=== PATIENT | female | born 1990 | race Two or more races ===

== ENCOUNTER 2016-05-09 16:37 | Emergency (ER) | payer OTHER ==
[~2016-05-09] VITALS: Wt 60.0 kg
[~2016-05-09 16:37] MED LIST: DICY10CA60 PO; IBUP-1542 PO; IBUP800T25 PO; ONDA4TAB35 PO
[2016-05-09 18:12] LABS: URINE BLOOD (Dip) POC Negative (NEGATIVE)
[2016-05-09 18:29] LABS: BASOPHILS % 0.2 % (0.0-2.0); EOSINOPHILS % 0.4 % (0.0-7.0); HEMATOCRIT 43.8 % (37.0-47.0); HEMOGLOBIN 14.4 g/dl (12.0-16.0); LYMPHOCYTES # 2.8 10^3/ul (0.8-2.9); LYMPHOCYTES % 33.7 % (15.0-51.0); MEAN CORPUSCULAR HEMOGLOBIN 28.7 pg (29.0-33.0); MEAN CORPUSCULAR HGB CONC 32.9 g/dl (32.0-37.0); MEAN PLATELET VOLUME 9.2 fl (7.4-10.4); MONOCYTE # 0.4 10^3/ul (0.3-0.9); NEUTROPHIL # 5.1 10^3/ul (1.6-7.5); NEUTROPHILS % 60.7 % (39.0-77.0); PLATELET COUNT 207 10^3/UL (140-440); RED BLOOD COUNT 5.04 10^6/ul (4.20-5.40); UNCORRECTED WBC 8.4 10^3/ul (4.8-10.8); WHITE BLOOD COUNT 8.4 10^3/ul (4.8-10.8)
[2016-05-09 18:33] LABS: POTASSIUM 3.8 mmol/L (3.5-5.1)
[2016-05-09 18:35] LABS: CREATININE 0.73 mg/dl (0.44-1.00)
[2016-05-09 18:45] LABS: CONDITION 1
--- NOTE | 2016-05-09 18:51 | RADRPT ---
PROCEDURE: US Pelvis. CLINICAL INDICATION: Pelvic pain and vaginal bleeding TECHNIQUE: Multiple sonographic images of the pelvis were obtained utilizing a transabdominal and endovaginal technique. The images were reviewed on a PACS workstation. COMPARISON: August 09, 2015 FINDINGS: The uterus is visualized and measures 6.5 x 3.0 x 3.9 cm. The endometrial echo complex measures 11 m m thickness. Small Nabothian cyst is seen in the cervix. No uterine masses are identified. The right ovary measures 2.7 x 2.2 x 2.1 cm . The left ovary measures 3.3 x 1.7 x 2.0 cm. 1.8 cm s imple cyst is identified on the right ovary. Multiple follicles are seen on the left ovary. The ov vitaliy demonstrate normal vascularity.. Trace free fluid is noted in the cul-de-sac. IMPRESSION: Small Nabothian cyst in the cervix. 1.8 cm simple cyst on the right ovary. This likely reflects a prominent follicle or physiologic cys t. Trace, nonspecific free fluid in the cul-de-sac. This could be physiologic. If further characterization of the organs of the pelvis is needed MRI should be considered. RPTAT: AA .Williams Wagner MD, Date Time Electronically viewed and signed by .Williams Wagner MD, MD on 05/09/2016 18:50 .P/
[2016-05-09] MEDS ORDERED: IBUP400T22 PO (19:28)
[2016-05-09 19:44] VITALS: BP 135/82; PULSE 77; RESP 18; TEMP 98.9
--- NOTE | 2016-05-09 19:50 | ERD ---
ER Documentation Chief Complaint Date/Time DATE: 05/09/16 TIME: 19:45 Chief Complaint NAUSEA VAGINAL BLEEDING FOR 2 WKS. NOT . NO DYSURIA HPI Patient is a 25-year-old female who presents to the ED with bilateral pelvic pain, vaginal bleeding. She states that she had her period on 04/25/16 and had 5 days of bleeding. She denies bleeding today. She states that she has had a history of ovarian cysts in the past and was on control however she stopped in January. She now complains of pelvic pain. She also complains of a green discharge from her rectum 2 weeks ago she denies anal sex. She denies sexual activity for the last 3 years. She denies abnormal vaginal discharge. She denies dysuria, urgency or frequency. She denies fever or chills. She denies constipation, last bowel movement was yesterday she ate. She is passing gas. Denies abdominal pain, nausea, vomiting or diarrhea. Denies headache or dizziness. Denies leg pain or swelling. Denies rectal pain.. She states that this happened 2 or 3 times. ROS All systems reviewed and are negative except as per history of present illness. Medications Home Meds Active Scripts Ibuprofen* (Motrin*) 400 Mg Tab, 400 MG PO Q6, #30 TAB Prov:RUSS VALVERDE PA-C 05/09/16 Ibuprofen* (Motrin*) 600 Mg Tab, 600 MG PO Q6H Y for PAIN AND OR ELEVATED TEMP, #30 TAB Prov:SARAH RACHEL PA-C 11/19/15 Ibuprofen* (Motrin*) 800 Mg Tab, 800 MG PO Q6H Y for PAIN, #30 TAB Prov:SHANTHI PÉREZ MD 08/09/15 Ondansetron Hcl* (Zofran* ODT) 4 mg -ODT Tab.disper, 4 MG PO Q4H Y for NAUSEA AND OR VOMITING, #30 TAB Prov:SHANTHI PÉREZ MD 08/09/15 Dicyclomine Hcl* (Bentyl*) 10 Mg Capsule, 10 MG PO TID Y for abdominal cramping , #30 CAP Prov:SHANTHI PÉREZ MD 08/09/15 Allergies Allergies: Coded Allergies: No Known Allergy (Unverified , 05/09/16) PMhx/Soc History of Surgery: No Anesthesia Reaction: No Hx Neurological Disorder: No Hx Respiratory Disorders: No Hx Cardiac Disorders: No Hx Psychiatric Problems: No Hx Miscellaneous Medical Probl: Yes (hemorhoids, recent colonoscopy) Hx Alcohol Use: No Hx Substance Use: No Hx Tobacco Use: No Smoking Status: Never smoker FmHx Family History: No coronary disease, No diabetes, No other Physical Exam Vitals Vital Signs Date Time Temp Pulse Resp B/P Pulse Ox O2 Delivery O2 Flow Rate FiO2 05/09/16 16:46 98.9 91 20 154/85 97 Physical Exam GENERAL: Well-developed, well-nourished female. Appears in no acute distress. LUNG: Clear to auscultation bilaterally. No rhonchi, wheezing, rales or coarse breath sounds. HEART: Regular rate and rhythm. No murmurs, rubs or gallops. ABDOMEN: No scars, ecchymosis or rashes noted. Soft, nontender, and nondistended. Positive bowel sounds in all four quadrants. No rebound tenderness , no guarding. (-) McBurneys point tenderness. No CVA tenderness. Tenderness in the bilateral pelvic area. No CVA tenderness BACK: No midline tenderness. EXAM: No PID, no adnexal tenderness no abnormal vaginal discharge. No pain with rectal exam. No surrounding erythema no drainage. No rectal pain. No blood. No discharge seen. Extremities: Equal pulses bilaterally. No peripheral clubbing, cyanosis or edema. No unilateral leg swelling. NEUROLOGIC: Alert and oriented. Moving all four extremities. 5/5 strength in all extremities. Normal speech. Steady gait. SKIN: Normal color. Warm and dry. No rashes or lesions. Capillary refill < 2 seconds Result Diagram: 05/09/16 18005/09/16 180 Results 24 hrs Laboratory Tests Test 05/09/16 18:05 05/09/16 18:14 Anion Gap 17 Basophils # 0.010^3/ul Basophils % 0.2% Blood Morphology Comment Blood Urea Nitrogen 10mg/dl Calcium Level 10.0mg/dl Carbon Dioxide Level 31mmol/L Chloride Level 100mmol/L Creatinine 0.73mg/dl Eosinophils # 0.010^3/ul Eosinophils % 0.4% Glucose Level 86mg/dl Hematocrit 43.8% Hemoglobin 14.4g/dl Lymphocytes # 2.810^3/ul Lymphocytes % 33.7% Mean Corpuscular Hemoglobin 28.7pg Mean Corpuscular Hemoglobin Concent 32.9g/dl Mean Corpuscular Volume 87.0fl Mean Platelet Volume 9.2fl Monocytes # 0.410^3/ul Monocytes % 5.0% Neutrophils # 5.110^3/ul Neutrophils % 60.7% Nucleated Red Blood Cells # 0.010^3/ul Nucleated Red Blood Cells % 0.0/100WBC Platelet Count 49513^3/UL Potassium Level 3.8mmol/L Red Blood Count 5.0410^6/ul Red Cell Distribution Width 14.0% Sodium Level 144mmol/L White Blood Count 8.410^3/ul Bedside Urine Blood Negative Bedside Urine Glucose (UA) Negative Bedside Urine Ketones (LAB) Negative Bedside Urine Leukocyte Esterase (L Negative Bedside Urine Nitrite (LAB) Negative Bedside Urine Protein (LAB) 1+ Bedside Urine pH (LAB) 7.0 Procedures/MDM ER COURSE: I kept the patient and/or family informed of laboratory and diagnostic imaging results throughout the emergency room course. EKG, MONITORS, & DIAGNOSTIC IMAGING: [place] [id number] Radiology Main Line: [phone] DIAGNOSTIC IMAGING REPORT Patient: VISHNU QUISPE : 1990 Age: 25 Sex: F MR #: [id number] DOS: 05/09/16 1800 Ordering MD: RUSS VALVERDE PA-C Location: [facility] Room/Bed: PROCEDURE: US Pelvis. CLINICAL INDICATION: Pelvic pain and vaginal bleeding TECHNIQUE: Multiple sonographic images of the pelvis were obtained utilizing a transabdominal and endovaginal technique. The images were reviewed on a PACS workstation. COMPARISON: August 09, 2015 FINDINGS: The uterus is visualized and measures 6.5 x 3.0 x 3.9 cm. The endometrial echo complex measures 11 mm thickness. Small Nabothian cyst is seen in the cervix. No uterine masses are identified. The right ovary measures 2.7 x 2.2 x 2.1 cm . The left ovary measures 3.3 x 1.7 x 2.0 cm. 1.8 cm simple cyst is identified on the right ovary. Multiple follicles are seen on the left ovary. The ovaries demonstrate normal vascularity.. Trace free fluid is noted in the cul-de-sac. IMPRESSION: Small Nabothian cyst in the cervix. 1.8 cm simple cyst on the right ovary. This likely reflects a prominent follicle or physiologic cyst. Trace, nonspecific free fluid in the cul-de-sac. This could be physiologic. If further characterization of the organs of the pelvis is needed MRI should be considered. RPTAT: AA .Williams Wagner MD, Date Time Electronically viewed and signed by .Williams Wagner MD, on 05/09/2016 18:50 .P/ CC: RUSS VALVERDE PA-C LAB INTERPRETATION: CBC showed no evidence of systemic infection or severe anemia. CMP showed no evidence of electrolyte abnormalities, severe acidosis, alkalosis, renal failure , or liver disease. Lipase showed no evidence of acute pancreatitis. UA showed no evidence of leukocytes, nitrites or hematuria. Urine test was negative. MEDICAL DECISION MAKING: This is a 25-year-old female who presents with pelvic pain. Vital signs were reviewed. Patient is afebrile. Patient is not hypoxic. Patient has an ovarian cyst on the right side. Low suspicion for ovarian torsion, PID, tuboovarian abscess, ectopic , bowel obstruction, pyelonephritis, UTI, appendicitis , cervicitis, septic , molar , HELLP syndrome, preeclampsia, eclampsia, placenta previa, placenta abruptia. Low suspicion for PID as she does not have cervical motion tenderness or adnexal pain. No fevers or chills. The discharge from her rectum is of unknown etiology. Low suspicion for fistula, perirectal abscess, perianal abscess. Patient is afebrile. DISCHARGE: At this time, patient is stable for discharge and outpatient management with no new complaints during the ER course. Patient was sent home with ibuprofen and to follow-up with a blindstitch hemmer and her real estate transaction manager for further evaluation of her cyst.. Patient will be discharged home with instructions to recheck for new or worsening symptoms such as fever, nausea, weakness, LOC and to follow up with primary care in the next 1-2 days. Patient was advised to return to the ER for any new or worsening symptoms. Plan was discussed and patient and/or family understands and agrees. Home instructions were given. Departure Diagnosis: Primary Impression: Ovarian cyst Laterality: right Qualified Code: N83.201 - Cyst of right ovary Additional Impression: Dysfunctional uterine bleeding Condition: Stable Patient Instructions: Ovarian Cyst Referrals: JESSICA BELTRAN SHAHRAM MD DESAI, SALEEM A MD PICHETSHOTE,KHOI WILLIAM Additional Instructions: Call your primary care doctor TOMORROW for an appointment during the next 1-2 days.See the doctor sooner or return here if your condition worsens before your appointment time. RUSS VALVERDE PA-C May 09, 2016 19:50
== END 2016-05-09 19:45 | disposition home or self-care (01) ==
LOC: FTE 16:37
DX: N83.201 Unspecified ovarian cyst, right side (principal); N93.8 Other specified abnormal uterine and vaginal bleeding
CPT/HCPCS: 36415; 76830; 76856; 80048; 81003; 85025; Z7502